=== PATIENT | male | born 1965 | race Caucasian/White ===

== ENCOUNTER 2020-02-18 16:26 | Outpatient (CLI) | payer OTHER, SELFPAY ==
--- NOTE | ~2020-02-18 | US_ITS ---
US abdomen complete EXAMINATION: US Abdomen Complete INDICATION: Generalized abdominal pain PROCEDURE: Realtime High Resolution abdomen ultrasound. COMPARISON: No prior studies for comparison FINDINGS: Gallbladder within normal limits. No gallstones, pericholecystic fluid, gallbladder wall t hickening or biliary dilatation. Common bile duct measures 4 mm. Liver echotexture is increased, consistent with fatty infiltration. Liver is enlarged measuring 22 cm . Pancreas within normal limits. Pancreatic tail is obscured by bowel gas. Spleen is enlarged marshall uring 13 cm. Renal echotexture is within normal limits bilaterally without hydronephrosis, contour de forming mass or renal stone. Right kidney measures 11.5 cm. Left kidney measures 11.7 cm. Visualized aspects of the aorta and IVC are within normal limits. Portal vein is patent. No sonograph ic Bullock's sign indicated by the technologist. IMPRESSION: 1: Hepatosplenomegaly with fatty infiltration of the liver. Reviewed, dictated and finalized at location A.
== END 2020-02-18 16:27 | disposition home or self-care (01) ==
PROVIDERS: PCP Internal Medicine; Visit Provider Nurse Practitioner
DX: R10.9 Unspecified abdominal pain (principal); K76.89 Other specified diseases of liver
CPT/HCPCS: 76700

== ENCOUNTER 2020-02-19 15:49 | Outpatient (CLI) | payer OTHER, SELFPAY ==
--- NOTE | ~2020-02-19 | CT_ITS ---
EXAMINATION: CT abdomen pelvis w con INDICATION: Abdominal pain TECHNIQUE: Computed tomographic images of the abdomen and pelvis were obtained after the administrati on of 100 cc of Omnipaque 350 intravenous contrast. The dose-length product (DLP) was 1403.05 mGy-cm. Automated exposure control and iterative reconstruction technique were employed. COMPARISON: None available FINDINGS: Minimal dependent atelectasis is present in the lung bases. The heart size is normal. There is mild circumferential wall thickening of the distal esophagus. The liver is diffusely low in atten uation when compared with the spleen, consistent with hepatic steatosis. The spleen, pancreas, gallbl adder, and adrenal glands are normal. The left kidney is unremarkable. There is a 9 mm nonobstructing stone of the right kidney. No stones are identified in the ureters or bladder. There is no hydroneph rosis or hydroureter. No pathologically enlarged abdominal or pelvic lymph nodes are identified. Ther e is no free intraperitoneal gas or evidence of bowel obstruction. Colonic diverticulosis is present without evidence of diverticulitis. The appendix is normal. There is mild lumbar spondylosis. There a re small umbilical and bilateral inguinal hernias containing fat. IMPRESSION: 1. No CT correlate for the patient's symptoms. 2. Nonobstructing right nephrolithiasis. 3. Diffuse hepatic steatosis. Reviewed, dictated and finalized at location A.
[2020-02-19 16:49] LABS: Basophils Absolute Auto 0.1 K/mm3 (0.0-0.1); Basophils Percent Auto 0.7 % (0.2-1.2); Eosinophils Absolute Auto 0.3 K/mm3 (0-0.3); Eosinophils Percent Auto 4.5 % (0-4.4); Hematocrit 44.4 % (42.0-52.0); Hemoglobin 15.5 g/dL (14.0-18.0); Immature Granulocyte Absolute 0.06 K/mm3 (0.00-0.031); Immature Granulocyte Percent A 0.9 % (0-0.5); Lymphocytes Absolute Auto 1.74 K/mm3 (0.9-3.2); Lymphocytes Percent Auto 25.2 % (18.3-44.2); Mean Corpuscular HGB Conc 34.9 g/dl (32-36); Mean Corpuscular Hemoglobin 28.7 pg (26-34); Mean Corpuscular Volume 82.2 fl (80-100); Mean Platelet Volume 10.1 fl (7.4-10.4); Monocytes Absolute Auto 0.5 K/mm3 (0.1-0.6); Monocytes Percent Auto 7.8 % (2.6-8.5); Neutrophils Absolute Auto 4.2 K/mm3 (1.3-6.7); Neutrophils Percent Auto 60.9 % (45.5-73.1); Platelet Count Result 233 k/mm3 (150-375); Red Cell Distribution Width 13.7 % (11.5-14.5); White Blood Count 6.9 K/mm3 (4.5-10.0)
[2020-02-19 16:58] LABS: Prothrombin Time 12.9 Seconds (11.1-14.7)
[2020-02-19 17:02] LABS: Alanine Aminotransferase 21 U/L (4-50); Albumin Level 4.2 g/dL (3.5-5.1); Alkaline Phosphatase 62 U/L (38-126); Anion Gap 9 mmol/L (8-16); Aspartate Amino Transferase 26 U/L (17-59); Bilirubin,Total 0.3 mg/dL (0.2-1.3); Blood Urea Nitrogen 20 mg/dL (9-20); Calcium 8.7 mg/dL (8.4-10.2); Carbon Dioxide 24 mmol/L (22-30); Chloride 104 mmol/L (98-107); Estimated Glomerular Filt Rate > 60; Glucose 113 mg/dL (75-110); Potassium 3.8 mmol/L (3.4-5.0); Sodium 137 mmol/L (137-145)
[2020-02-19 17:42] LABS: HIV 1/2 Ab P24 Ag Result Negative (Negative)
[2020-02-19 18:45] LABS: Hepatitis B Surface Antigen Negative (Negative)
[2020-02-19 18:51] LABS: HAV RESULT Negative (Negative); Hepatitis B Core IgM Result Negative (Negative)
[2020-02-19 19:02] LABS: Hepatitis C Virus Antibody Negative (Negative)
== END 2020-02-19 15:50 | disposition home or self-care (01) ==
PROVIDERS: PCP Internal Medicine; Visit Provider Nurse Practitioner
DX: R16.2 Hepatomegaly with splenomegaly, not elsewhere classified (principal); R10.9 Unspecified abdominal pain; N20.0 Calculus of kidney; K76.0 Fatty (change of) liver, not elsewhere classified
CPT/HCPCS: 36415; 74177; 80053; 80074; 85025; 85610; 86703; G0432; Q9967

== ENCOUNTER 2025-04-07 12:32 | Outpatient (CLI) | payer OTHER, SELFPAY ==
--- OUTSIDE RECORDS SUMMARY | 2025-04-07 12:36 | XMS_ITS | Encounter Summary ---
Author Organization [facility] Address [facility] [place] [address] Care Team Providers Care Events Director Name Role Phone Erik Prince MD Primary Care Provider [phone] Encounter Details Date Type Department Care Team (Late st Contact Info) Description 02/15/2018 Lab Requisition [facility] Care DermPath Lab [address] [facility] [place] [phone] Sylvia Christianson MD [address] [facility] [address] [place] [address] Social History Tobacco Use Types Packs/Day Years Used Date Smoking Tobacco: Never Alcohol Use Standard Drinks/Week Comments No 0 (1 standard drink = 0.6 oz pur e alcohol) Sex and Gender Information Value Date Recorded Sex Assigned at Not on file 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 Gender Identity Not on file Sexual Orientation Not on file documented as of this encounter Plan of Treatment Not on file documented as of this encounter Procedures Procedure Name Priority Date/Time Associated Diagnosis Comments IMMUNOFLUORESCENT STUDY DERM Routine 02/14/2018 12:00 AM CDT documented in this encounter Results * IMMUNOFLUORESCENT STUDY DERM (02/14/2018 12:00 AM CDT) Case Report Dermatopathol ogy Report Case: [id number] Authorizing Provider: Sylvia Christianson MD Collected: 02/14/2018 12:00 AM Pathologist: Kalee Kaur MD Received: 02/15/2018 11:29 AM Specimen: Skin, left leg 12:42 PM CDT DERMATOPATHOLOGY LABORATORY Final Diagnosis Specimen A. SKIN, left leg: VASCULAR IgA (M31.0) (see microscopic description and comment) 12:42 PM CDT DERMATOPATHOLOGY LABORATORY at 1242 CDT Direct Immunofluorescence Report - Specimen A Specimen A IgA IgM IgG C3 CollV Fibrinogen Epidermis Negative Negative Negative Negative Negative Negative Basement Membrane Negative Negative Negative Negative 2+ Negative Vessels 2+ Granular Trace Focal Granular Negative Negative 2+ 2+ Granular Interstitium Negative Negative Negative Negative Negative Non specific 12:42 PM CDT DERMATOPATHOLOGY LABORATORY Clinical History Red papules and plaques. 12:42 PM CDT DERMATOPATHOLOGY LABORATORY Gross Description Specimen A: Received is one Carlos's media filled container labeled with the patient's name and designated left leg. The specimen consists of a punch biopsy measuring [id number]. The specimen is submitted in whole for direct immunofluores cence testing. 12:42 PM CDT DERMATOPATHOLOGY LABORATORY Microscopic Description Specimen A. SKIN, left leg: Controls were run in parallel. There are granular vascular deposits with IgA and IgM. Staining is negative with IgG and C3. Collagen IV stains the basement membrane zone and vessels. Fibrinogen shows vascular staining. 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 12:42 PM CDT DERMATOPATHOLOGY LABORATORY Disclaimer An external and internal positive and negative controls are appropriate for the histochemical , immunohistoch emical and immunofluores cence stain(s) in this case (if any), except where stated explicitly. The performance characteristi cs of the stain(s) cited in this report were developed and its performance characteristi c determined by the Dermatopathol ogy Laboratory at [facility]. These tests need not be, and therefore are not, approved by the [place] Food and Drug Administratio n. The tests are used for clinical purposes. Billing Codes Specimen Charges Stain Charges 07679 62632 99928 [id number] 1 1 1 1 1 1 12:42 PM CDT DERMATOPATHOLOGY LABORATORY Embedded Images 12:42 PM CDT DERMATOPATHOLOGY LABORATORY Pathology/Cytolog y TISSUE SPECIMEN FROM SKIN / Unknown 02/14/2018 02/15/2018 11:29 AM CDT us Sylvia Christianson MD LAB - PATHOLOGY/CYTOLOGY OR DERABLES Final Result DERMATOPATHOLOGY LABORATORY [facility] - Department of Dermatology [address] [facility], 5th Floor Lab B [address] [phone] documented in this encounter Visit Diagnoses Not on filedocumented in this encounter Care Teams Events Director Relationship Specialty Start Date End Date Erik Prince MD [address] [facility] [address] [place] [address] PCP - General 04/04/10 12/29/21 documented as of this encounter
--- OUTSIDE RECORDS SUMMARY | 2025-04-07 12:36 | XMS_ITS | Clinical Summary ---
Author Organization [facility] Interventional Imaging Address [address] [place] [address] Care Team Providers Care Bath House Attendant Name Role Phone Unavailable Primary Care Provider Unavailabl e Source Comments [facility],non-owned Affiliates and Associated Physician Practices is amultiple site organization consisting of ambulatory clinics and hospital sitesin [place], [place], [place] and [place]. This disclosure is being madepursuant to the Care Everywhere program and may not contain all information available regarding this patient. Last updated 18.[facility] Interventional Imaging Allergies Active Allergy Reactions Criticality Noted Date Comments Bee Venom Urticaria Medium 12/30/2021 Medications * Be aware that medications may not be up to date on this document. Alwaysverify current medications with the patient. DULoxetine (Cymbalta) 30 MG capsule Take 30 mg by mouth 3 times daily Active atorvastatin (Lipitor) 10 MG tablet Take 10 mg by mouth at bedtime Active lisinopril (Prinivil; Zestril) 10 MG tablet Take 10 mg by mouth once daily Active buPROPion SR 12hr (Wellbutrin-SR) 100 MG tablet Take 100 mg by mouth 2 times daily Active hydrOXYzine pamoate (Vistaril) 50 MG capsule Take 50 mg by mouth every 6 hours as needed Active cloNIDine (Catapres) 0.1 MG tablet Take 0.1 mg by mouth 2 times daily Active methocarbamol (Robaxin) 750 MG tablet Take 750 mg by mouth every 6 hours as needed for Muscle Spasms Active dicyclomine (Bentyl) 20 MG tablet Take 10 mg by mouth 3 times daily Active ONDANSETRON PO Activ e docusate sodium (Docuprene) 100 MG tablet Take 100 mg by mouth once daily Active Loperamide (Imodium) 2 MG tablet Take 2 mg by mouth 4 times daily as needed for Diarrhea Active omeprazole EC (PriLOSEC OTC) 20 MG tablet Take 20 mg by mouth daily before breakfast Active LORATADINE PO Active IBUPROFEN PO Take 200 mg by mouth Active Calcium Carbonate Antacid (TUMS PO) Active Calcium Carbonate Antacid (SARIAH-SELTZER ANTACID PO) Active Acetaminophen (TYLENOL PO) Take 500 mg by mouth Active buprenorphine-n aloxone (Suboxone Film) 2-0.5 MG strip Dissolve 4 mg under the tongue once daily Active amitriptyline (Elavil) 50 MG tablet Take 50 mg by mouth at bedtime Active Active Problems Problem Noted Date Diagnosed Date Corneal edema 03/11/2015 Family History Medical History Relation Name Comments Blindness Neg Hx Glaucoma Neg Hx Macular Degeneration Neg Hx Retinal Detachment Neg Hx Social History Tobacco Use Types Packs/Day Years Used Date Smoking Tobacco: Never Smokeless Tobacco: Never Alcohol Use Standard Drinks/Week Comments No 0 (1 standard drink = 0.6 oz pur e alcohol) PHQ-2 Answer Date Recorded PHQ2 TOTAL SCORE 0 12/30/2021 Sex and Gender Information Value Date Recorded Sex Assigned at Not on file 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 Gender Identity Not on file Sexual Orientation Not on file Last Filed Vital Signs Vital Sign Reading Time Taken Comments Blood Pressure 112/67 12/30/2021 3:48 PM CDT Pulse 106 12/30/2021 3:46 PM CDT Temperature 36.4 C (97.5 F) 12/30/2021 3:46 PM CDT Respiratory Rate 20 12/30/2021 2:27 PM CDT Oxygen Saturation 98% 12/30/2021 2:27 PM CDT Inhaled Oxygen Concentration - - Weight 113.4 kg (250 lb) 12/30/2021 2:27 PM CDT Height 180.3 cm (5' 11) 12/30/2021 2:27 PM CDT Body Mass Index 34.87 12/30/2021 2:27 PM CDT Plan of Treatment Health Maintenance Due Date Last Done Comments COLOGUARD (AGES 45-75) - COL ON CA SCREENING 1966 COLON MONITORING 1966 COLONOSCOPY - COLON CA SCREENING 1966 CT COLONOGRAPHY - COLON CA SCREENING 1966 Colorectal Cancer Screening 1966 FIT - COLON CA SCREENING 1966 FLEX SIG - COLON CA SCREENING 1966 HIV SCREENING 1981 HEPATITIS C SCREENING 04/15/1984 DTAP/TDAP/TD VACCINES (1 - Tdap) 1985 HEPATITIS B VACCINE (1 of 3 - 19+ 3-dose series) 1985 PNEUMOCOCCAL VACCINE 50+ (1 of 1 - PCV) 2016 ZOSTER VACCINE (1 of 2) 2016 DEPRESSION SCREENING 05/28/2024 12/30/2021 COVID-19 VACCINE (3 - 2024-2 6 season) 2025 08/20/2020, 07/22/2020 INFLUENZA VACCINE (#1) 2025 6, 04/30/2013 HIB VACCINE Aged Out No longer eligi ble based on patient's age to complete this topic HPV VACCINE Aged Out No longer eligi ble based on patient's age to complete this topic MENINGOCOCCAL (Group B) VACCINE SHARED DECISION-MAKING Aged Out No longer eligible based on patient's age to complete this topic MENINGOCOCCAL GROUPS A/C/Y/W VACCINE Aged Out No longer eligible b ased on patient's age to complete this topic Insurance [employer]ET[employer] CIGNA [facility] Address: [facility] [id number] [id number]
--- OUTSIDE RECORDS SUMMARY | 2025-04-07 12:36 | XMS_ITS | Encounter Summary ---
Author Organization [facility] Health Address [address] [facility] [place] [address] Care Team Providers Care Sales Representative Graphic Art Name Role Phone Erik Prince MD Primary Care Provider [phone] Encounter Details Date Type Department Care Team (Late st Contact Info) Description 02/15/2018 Lab Requisition [facility] Care DermPath Lab [address] [facility] [place] [phone] Sylvia Christianson MD [address] [facility] [address] DEPT [place] [address] Social History Tobacco Use Types Packs/Day Years Used Date Smoking Tobacco: Never Alcohol Use Standard Drinks/Week Comments No 0 (1 standard drink = 0.6 oz pur e alcohol) Sex and Gender Information Value Date Recorded Sex Assigned at Not on file 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
--- OUTSIDE RECORDS SUMMARY | 2025-04-07 12:36 | XMS_ITS | Encounter Summary ---
Author Organization [facility] Address [facility] [facility] [place] [address] Care Team Providers Care Wraparound Facilitator Name Role Phone Erik Prince MD Primary Care Provider [phone] Encounter Details Date Type Department Care Team (Late st Contact Info) Description 02/18/2018 Lab Requisition [facility] Care DermPath Lab [address] [facility] [place] [phone] Mag Weber MD [address] [facility] [address] [place] [address] Social History Tobacco Use Types Packs/Day Years Used Date Smoking Tobacco: Never Alcohol Use Standard Drinks/Week Comments No 0 (1 standard drink = 0.6 oz pur e alcohol) Sex and Gender Information Value Date Recorded Sex Assigned at Not on file 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 Gender Identity Not on file Sexual Orientation Not on file documented as of this encounter Plan of Treatment Not on file documented as of this encounter Procedures Procedure Name Priority Date/Time Associated Diagnosis Comments DERMATOPATH TECHNICAL REPORT Routine 02/14/2018 12:00 AM CDT documented in this encounter Results * DERMATOPATH TECHNICAL REPORT (02/14/2018 12:00 AM CDT) Case Report Dermatopathology Report Case: [id number] Authorizing Provider: Mag Weber MD Collected: 02/14/2018 12:00 AM Pathologist: Kalee Kaur MD Received: 02/18/2018 06:28 AM Specimen: Skin, right leg 2:01 PM CDT DERMATOPATHOLOGY LABORATORY Addendum 1 At the request of the diagnosing physician, the technical component for Tissue Gram and GMS was performed by [facility] Dermatopathology Laboratory. 2:01 PM [facility]NOTE 3] DERMATOPATHOLOGY LABORATORY Addendum electronically signed by Kalee Kaur MD on 02/20/2018 at 1401 CDT Clinical History Red papules and plaques @ legs, feet, LCV R/O HSP. 2:01 PM T DERMATOPATHOLOGY LABORATORY Gross Description Specimen A: Received is one formalin filled container labeled with the patient's name and designated right leg. The specimen consists of a punch measuring [id number], bisected. Jar 0. [facility] Dermatopathology [facility] performed the technical component only. 2:01 PM CDT DERMATOPATHOLOGY LABORATORY Embedded Images 2:01 PM T DERMATOPATHOLOGY LABORATORY DISCLAIMER An external and internal positive and negative controls are appropriate for the histochemical, immunohistochemical and immunofluorescence stain(s) in this case (if any), except where stated explicitly. The performance characteristics of the stain(s) cited in this report were developed and its performance characteristic determined by the Dermatopathology Laboratory at [facility]. These tests need not be, and therefore are not, approved by the [place] Food and Drug Administration. The tests are used for clinical purposes. 2:01 PM [facility][NOTE 3] DERMATOPATHOLOGY LABORATORY at 1239 CDT Pathology/Cytolog y TISSUE SPECIMEN FROM SKIN / Unknown 02/14/2018 02/18/2018 6:28 AM CDT us Mag Weber MD LAB - PATHOLOGY/CYTOLOGY ORD ERABLES Edited Result - Final DERMATOPATHOLOGY LABORATORY [facility] - Department of Dermatology [address] [facility] 5th [place] [address], [facility] [phone] documented in this encounter Visit Diagnoses Not on filedocumented in this encounter Care Teams Wraparound Facilitator Relationship Specialty Start Date End Date Erik Prince MD [address] [facility] [address] [place] [address] PCP - General 04/04/10 12/29/21 documented as of this encounter
--- OUTSIDE RECORDS SUMMARY | 2025-04-07 12:36 | XMS_ITS | Clinical Summary ---
Author Organization [facility] Address [facility] [place] [address] Care Team Providers Care Lead Generation Representative Name Role Phone Unavailable Primary Care Provider Unavailabl e Social History Tobacco Use Types Packs/Day Years Used Date Smoking Tobacco: Never Assessed Sex and Gender Information Value Date Recorded Sex Assigned at Not on file Legal Sex Male 6:35 PM CDT Gender Identity Not on file Sexual Orientation Not on file Plan of Treatment Health Maintenance Due Date Last Done Comments Colorectal Cancer Screening Colonoscopy (10 Years) 1966 Annual Physical 1969 Hepatitis C 1984 DTaP, Tdap and Td Vaccines ( 1 - Tdap) 1985 Hepatitis B Vaccines (1 of 3 - 19+ 3-dose series) 1985 Pneumococcal Vaccine: 50+ Ye ars (1 of 1 - PCV) 2016 Zoster Vaccines (1 of 2) 2016 COVID-19 Vaccine ( - 2024-2 6 season) 2025 Influenza Adult (#1) 2025 Hepatitis A Vaccines Aged Out No long er eligible based on patient's age to complete this topic Meningococcal B Vaccine Aged Out No l onger eligible based on patient's age to complete this topic Meningococcal Vaccine Aged Out No paul jonas eligible based on patient's age to complete this topic RSV Immunizations Under 20 Months Aged Out No longer eligible based on patient's age to complete this topic
--- OUTSIDE RECORDS SUMMARY | 2025-04-07 12:36 | XMS_ITS | Clinical Summary ---
Author Organization [facility] Address [address] [place] [address] Care Team Providers Care Account Consultant Name Role Phone Kassie Johnson NP Primary Care Provider Allergies No known active allergies Medications sildenafil (VIAGRA) 100 mg tablet daily. [address] (CYMBALTA) 30 mg capsule Take 3 capsules (90 mg total) by mouth daily 1 Active atorvastatin (LIPITOR) 10 mg tablet Take 1 tablet (10 mg total) by mouth nightly Active acetaminophen ER (TYLENOL) 650 mg 8 hr tablet Take 1 tablet (650 mg total) by mouth every 8 (eight) hours as needed for pain Active ibuprofen (ADVIL,MOTRIN) 200 mg tab/cap Take 4 tablet/capsule (800 mg total) by mouth every 8 (eight) hours as needed for pain Active aspirin 81 mg enteric coated tablet Take 1 tablet (81 mg total) by mouth daily 30 tablet 3 Active polyethylene glycol (MIRALAX) 17 gram/dose bulk powderIndicatio ns:constipation Take 17 g by mouth daily as needed (constipation) 3 Active albuterol HFA (PROVENTIL HFA,VENTOLIN HFA,PROAIR HFA) 90 mcg/actuation inhaler Inhale 2 puffs every 6 (six) hours as needed for wheezing or shortness of breath OK TO SUBSTITUTE IF ALTERNATIVE CHEAPER 1 each 3 4 Active fluticasone propion-salmete roL (ADVAIR HFA) 115-21 mcg/actuation inhaler Inhale 2 puffs 2 (two) times a day Rinse mouth with water after use. Do not swallow. 1 each 4 Active losartan (COZAAR) 25 mg tablet Take 1 tablet (25 mg total) by mouth daily 5 Active Mounjaro 10 mg/0.5 mL pen injector injection Inject 0.5 mL (10 mg total) under the skin once a week 5 Active tamsulosin (FLOMAX) 0.4 mg extended release capsule Take 1 capsule (0.4 mg total) by mouth daily with dinner 90 capsule 5 Active Active Problems Problem Noted Date Diagnosed Date Intentional drug overdose, initial encounter Diastolic dysfunction without heart failure 12/2022 Elevated lactic acid level 03/04/2023 Cocaine abuse 03/04/2023 Prediabetes 03/04/2023 Class 2 severe obesity due t o excess calories with serious comorbidity and body mass index (BMI) of 35.0 to 35.9 in adult 03/04/2023 Chest pain, unspecified type 02/26/2023 Chest pain 02/26/2023 SIRS (systemic inflammatory response syndrome) 1 Uncontrolled hypertension 02/26/2023 HSP (Henoch Schonlein purpura) 02/22/2018 Assessment & Plan (02/22/2018 8:19 PM CDT): 52-year-old white male with HSP associated with upper respiratory infection with concerns for possible renal involvement. He is mildly hypertensive here today. I would like to reassess a serum creatinine and urinalysis at this institution since he verbalizes he was fairly volume under repleted at the time. He is generally feeling better today and compared to his digital photographs has dramatic improvement of his rash. I reviewed with he and his the need for urgent evaluation for significant abdominal pain. I will reassess a CBC today. I will check a hemoglobin A1c given his hyperglycemia. Additional laboratories will include inflammatory markers, C3 and C4. In addition sutures were removed from the proximal lesion only and he was advised to have the remaining suture removed by his [employer] office since it was still not fully healed and that area takes a great deal of mechanical stress with knee flexion. 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 Post-void dribbling 07/08/2012 Incomplete emptying of bladder 07/08/2012 Urinary urgency 07/08/2012 Slowing of urinary stream 07/08/2012 Obstructive sleep apnea syndrome 06/15/2011 Fibromyalgia 06/15/2011 Assessment & Plan (02/22/2018 8:20 PM CDT): He has persistent symptoms of sensory neuropathy and I have suggested using 4% lidocaine pyft-ett-kbuford or Biofreeze to assist with pain control Joint pain 04/27/2011 Tingling of skin 04/27/2011 Resolved Problems Problem Noted Date Diagnosed Date Resolved Date Difficulty breathing 04/27/2011 018 Surgical History Surgery Date Site/Laterality Comments CORNEAL TRANSPLANT Bilateral Cornea Transplant - (Added by TW Conv) EYE SURGERY Eye Surgery - (Added by TW Conv) KNEE SURGERY Knee Surgery - (Added by TW Conv) Medical History Medical History Date Comments Disturbance of skin sensation Pa resthetic Notalgia - (Added by TW Conv) Anxiety disorder Anxiety - (Adde d by TW Conv) Hyperlipidemia Dyslipidemia - ( Added by TW Conv) Keratoconus of both eyes Keratoc onus of both eyes - (Added by TW Conv) Personal history of other di seases of the musculoskeletal system and connective tissue History of fibromyositis - ( Added by TW Conv) Fibromyalgia Hypertension HSP (Henoch Schonlein purpura) Social History Tobacco Use Types Packs/Day Years Used Date Smoking Tobacco: Never Tobacco Cessation:Counseling Given: Not Answered [facility] Utilities Answer Date Recorded In the past 12 months has th e electric, gas, oil, or water company threatened to shut off services in your home? No 07/24/2024 Social Connection and Isolation Panel Answer Date Recorded In a typical week, how many times do you talk on the phone with family, friends, or neighbors? Patient unable to answer 07/24/2024 How often do you get togethe r with friends or relatives? Patient unable to answer 07/24/2024 How often do you attend chur ch or taoism services? Never 07/24/2024 Do you belong to any clubs o r organizations such as temple groups, unions, fraternal or athletic groups, or school groups? No 07/24/2024 How often do you attend meet ings of the clubs or organizations you belong to? Never 07/24/2024 Are you , , di vorced, , never , or living with a partner? 07/24/2024 Overall Financial Resource Strain (CARDIA) Answe r Date Recorded How hard is it for you to pa y for the very basics like food, housing, medical care, and heating? Not very hard 07/24/2024 Hunger Vital Sign Answer Date Recorded Within the past 12 months, y ou worried that your food would run out before you got the money to buy more. Patient unable to answer 07/24/2024 Within the past 12 months, t he food you bought just didn't last and you didn't have money to get more. Patient unable to answer 07/24/2024 PRAPARE - Transportation Answer Date Re corded In the past 12 months, has l ack of transportation kept you from medical appointments or from getting medications? No 06/29 In the past 12 months, has l ack of transportation kept you from meetings, work, or from getting things needed for daily living? No 07/24/2024 Housing Stability Vital Sign Answer Amol e Recorded In the last 12 months, was t here a time when you were not able to pay the mortgage or rent on time? Patient unable to answer 07/24/2024 In the past 12 months, how m any times have you moved where you were living? Not on file 07/24/2024 At any time in the past 12 m [facility], were you homeless or living in a [facility] (including now)? Patient unable to answer 07/24/2024 Personal Safety Answer Date Recorded Have you ever been in or are you currently in a harmful physical or emotional relationship or is someone making you feel afraid or unsafe? Denies 08/05/2024 Sex and Gender Information Value Date Recorded Sex Assigned at Not on file Legal Sex Male 9:16 AM [employer] Gender Identity Male 02/22/2018 1:15 PM CDT Sexual Orientation Not on file Last Filed Vital Signs Vital Sign Reading Time Taken Comments Blood Pressure 145/91 08/05/2024 8:00 AM CDT Pulse 101 08/05/2024 8:00 AM CDT Temperature 37.1 C (98.8 F) 08/05/2024 2:53 AM CDT Respiratory Rate 23 08/05/2024 8:00 AM CDT Oxygen Saturation 100% 08/05/2024 8:00 AM CDT Inhaled Oxygen Concentration - - Weight 123.2 kg (271 lb 9.7 oz) 08/05/2024 2:53 AM CDT Height 180.3 cm (5' 10.98) 07/23/2024 10:59 PM [employer] Body Mass Index 37.9 07/23/2024 10:59 PM [employer] Plan of Treatment Health Maintenance Due Date Last Done Comments Colon Cancer Screening-Colonoscopy 1966 Depression Screening 1966 Hepatitis C Screening 1966 Prostate Cancer Screening-PSA 1966 Hepatitis B Screening 1984 Regular Well Visit/Exam 18-64 1984 Zoster Vaccine (1 of 2) 2016 DTaP/Tdap/Td Vaccine (2 - Td or Tdap) 04/30/2023 04/30/2013 Covid-19 Vaccine (3 - 2024-2 6 season) 2025 08/20/2020, 07/22/2020 Influenza Vaccine (#1) 2025 6, 04/30/2013 Pneumococcal vaccine <65 Aged Out No longer eligible based on patient's age to complete this topic Insurance [facility]PP[facility] Address: [address] [address] [place] [address] [facility] H[facility]/PPO Address: [address] [place] [id number] Advance Directives For more information, please contact: [phone] * Full Code (Latest Code Status on File) Date Activated Date Inactivated Comments 07/23/2024 11:26 PM 07/28/2024 9:51 PM * Full Code Date Activated Date Inactivated Comments 02/26/2023 6:03 AM 02/27/2023 3:33 PM Care Teams Account Consultant Relationship Specialty Start Date End Date Kassie Johnson NP PCP - General Nurse Practitioner 03/17/21
[2025-04-07 18:54] LABS: Alanine Aminotransferase 25 U/L (6-50); Albumin Level 4.2 g/dL (3.5-5.1); Alkaline Phosphatase 71 U/L (38-126); Anion Gap 10 mmol/L (4-12); Aspartate Amino Transferase 52 U/L (17-59); Bilirubin,Total 0.7 mg/dL (0.2-1.3); Blood Urea Nitrogen 20 mg/dL (9-20); Calcium 9.1 mg/dL (8.4-10.2); Carbon Dioxide 22 mmol/L (22-30); Chloride 106 mmol/L (98-107); Estimated Glomerular Filt Rate > 60; Glucose 79 mg/dL (65-110); Potassium 3.9 mmol/L (3.4-5.0); Sodium 138 mmol/L (137-145); Total Protein 7.5 g/dL (6.3-8.2)
[2025-04-07 19:09] LABS: Hematocrit 48.9 % (42.0-52.0); Hemoglobin 16.6 g/dL (14.0-18.0); Immature Granulocyte Percent A 0.7 % (0-0.5); Lymphocytes Absolute Auto 2.26 K/mm3 (0.9-3.2); Mean Corpuscular HGB Conc 33.9 g/dl (32-36); Mean Corpuscular Hemoglobin 28.6 pg (26-34); Mean Corpuscular Volume 84.2 fl (80-100); Nucleated Red Blood Cells Absolute Auto 0.000 K/mm3 (0.0-0.012); Nucleated Red Blood Cells Perc 0.0 % (0.0-0.2); Platelet Count Result 261 k/mm3 (150-375); Red Blood Count 5.81 M/mm3 (4.6-6.20); White Blood Count 9.2 K/mm3 (4.5-10.0)
[2025-04-07 19:10] LABS: Hemoglobin A1C 5.6 % (<5.7)
[2025-04-07 19:19] LABS: Prostate Specific Antigen 2.4 ng/mL (< OR = 4.0); Thyroid Stimulating Hormone 1.420 uIU/mL (0.465-4.680)
[2025-04-10 10:09] LABS: Free Testosterone (Direct) 10.4 pg/mL (7.2-24.0)
== END 2025-04-07 12:33 | disposition home or self-care (01) ==
LOC: ANHGOSHLAB 12:33
PROVIDERS: PCP Internal Medicine; Visit Provider Internal Medicine
DX: E11.9 Type 2 diabetes mellitus without complications (principal); I10 Essential (primary) hypertension; E78.2 Mixed hyperlipidemia; Z79.890 Hormone replacement therapy
CPT/HCPCS: 36415; 80053; 82172; 83036; 84153; 84402; 84403; 84443; 85025; G0103